=== PATIENT | male | born 1955 | race Caucasian/White ===

== ENCOUNTER 2017-12-06 10:14 | Emergency (ER) | END 2017-12-06 15:08 | disposition short-term general hospital (02) ==

== ENCOUNTER 2018-11-05 10:19 | Emergency (ER) | payer OTHER ==
[~2018-11-05] VITALS: Ht 162.6 cm; Wt 83.8 kg
[~2018-11-05 10:19] MED LIST: AMLO2.5T78 PO; AMLO5TAB4 PO; ASPI-817 PO; ATOR40TA68 PO; CHOL100062 PO; CLON-379 PO; ERGO500013 PO; HYDR-3671 PO; IBUP-1541 PO; LOSA1TAB28 PO; MELO15TA30 PO; MEMA10TA PO; METF-849 PO; MIRT15TA5 PO; OMEP20CA17 PO; TOLT2CAP15 PO; TOLT2CAP22 PO
[2018-11-05 10:30] VITALS: Ht 162.6 cm; Wt 83.8 kg
[2018-11-05 15:00] VITALS: BP 129/73; PULSE 64; RESP 20
== END 2018-11-05 15:50 | disposition home or self-care (01) ==
LOC: E/R 10:19
DX: R07.9 Chest pain, unspecified (principal); I10 Essential (primary) hypertension; E11.9 Type 2 diabetes mellitus without complications; Z79.84 Long term (current) use of oral hypoglycemic drugs
CPT/HCPCS: 36415; 71045; 80048; 84484; 85025; 93005; Z7502